=== PATIENT | female | born 2005 | race American Indian/Alaskan Native ===

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

== ENCOUNTER 2025-01-05 21:40 | Emergency (ER) | payer OTHER ==
[~2025-01-05] VITALS: Ht 167.6 cm; Wt 77.9 kg
[2025-01-05] MEDS ORDERED: LIDOCAINE/RACEPINEP/TETRACAINE 3 ML SYR TOP ONE (23:45)
[2025-01-06] MEDS ORDERED: CEPHALEXIN MONOHYDRATE 500 MG CAP PO ONE (01:15)
[2025-01-06] MEDS ORDERED: CEPHALEXIN500 M1 PO (01:15)
[2025-01-06 01:32] VITALS: BP 124/80
== END 2025-01-06 01:34 | disposition home or self-care (01) ==
LOC: ED 21:40
DX: S91.311A Laceration without foreign body, right foot, initial encounter (principal); Z88.0 Allergy status to penicillin; W25.XXXA Contact with sharp glass, initial encounter
CPT/HCPCS: 12001; 73630; 99283; A9270